=== PATIENT | male | born 1995 | race Caucasian/White ===

== ENCOUNTER 2016-11-13 16:36 | Emergency (ER) | payer BC, OTHER ==
[2016-11-13 17:58] VITALS: BP 108/67
--- NOTE | 2016-11-13 18:37 | UC ---
Skin Complaint HPI - HPI Summary HPI Summary: THREE DAYS AGO WAS WALKING IN [place], PLAYING PAINTBALL, RED BUMPS APPEARED IN LEGS AND HIPS ALL AT ONCE, NOT SPREADING. NO TICK BITES. NO SLEEPING ON UNFAMILIAR BEDS. NO FEVER. - History of Current Complaint Chief Complaint: UCSkin Time Seen by Provider: 11/13/16 17:59 Stated Complaint: RASH Hx Obtained From: Patient Onset/Duration: Sudden Onset, Lasting Days, Still Present Skin Exposure Onset/Duration: Days Ago Onset Severity: Mild Current Severity: Mild Location: Discrete - LOWER LEGS AND BILATERAL HIPS Aggravating: Nothing Alleviating: Nothing Associated Signs & Symptoms: Positive: Cough - SLIGHT COUGH, Rash, Tenderness. Negative: Nausea, Vomiting, Numbness, Thirst, Pallor, Fever, Chills, Wheezing, Chest Pain, Hoarseness, Syncope, Drainage, Bruising, Red Streaks, Joint Swelling Related History: Possible Reaction to: Animal, Possible Reaction to: Insect, Possible Reaction to: Environmental Exposure - Allergy/Home Medications Allergies/Adverse Reactions: Allergies Allergy/AdvReac Type Severity Reaction Status Date / Time Hydrocodone Allergy Intermediate Rash Verified 11/13/16 17:52 Review of Systems Constitutional: Negative Skin: Rash Eyes: Negative ENT: Negative Respiratory: Negative Cardiovascular: Negative Gastrointestinal: Negative Genitourinary: Negative Motor: Negative Neurovascular: Negative Musculoskeletal: Negative Neurological: Negative Psychological: Negative All Other Systems Reviewed And Are Negative: Yes PMH/Surg Hx/FS Hx/Imm Hx Previously Healthy: Yes Endocrine History Of: Denies: Diabetes, Thyroid Disease Cardiovascular History Of: Denies: Cardiac Disorders, Hypertension Respiratory History Of: Denies: COPD, Asthma GI/ History Of: Denies: Ulcer - Surgical History Surgical History: Yes Surgery Procedure, Year, and Place: [place] teeth extraction - Family History Known Family History: Negative: Blood Disorder - Social History Occupation: Student Lives: Alone Alcohol Use: Occasionally Substance Use Type: None Smoking Status (MU): Never Smoked Tobacco - Immunization History Most Recent Influenza Vaccination: 2017 Physical Exam Triage Information Reviewed: Yes Appearance: Well-Appearing, No Pain Distress, Well-Nourished, Thin Vital Signs: Initial Vital Signs Temp 98.5 F 11/13/16 17:53 Pulse 61 11/13/16 17:53 Resp 18 11/13/16 17:53 BP 108/67 11/13/16 17:53 Pulse Ox 100 11/13/16 17:53 Vital Signs Reviewed: Yes Eye Exam: Normal ENT Exam: Normal ENT: Positive: Normal ENT inspection, Hearing grossly normal, Pharynx normal, TMs normal Dental Exam: Normal Neck exam: Normal Neck: Positive: Supple, Nontender, No Lymphadenopathy Respiratory Exam: Normal Respiratory: Positive: Chest non-tender, Lungs clear, Normal breath sounds, No respiratory distress, No accessory muscle use Cardiovascular Exam: Normal Cardiovascular: Positive: RRR, No Murmur, Pulses Normal Abdominal Exam: Normal Abdomen Description: Positive: Nontender, No Organomegaly Musculoskeletal Exam: Normal Neurological Exam: Normal Psychological Exam: Normal Skin: Positive: rashes - SMALL DEMARKATED ERRTHEMATOUS MACULAR PAPULAR RASHES ON BILATERAL LOWER LEGS AND BILATERAL HIPS Course/Dx - Differential Diagnoses - Skin Complaint Differential Diagnoses: Allergic Reaction, Cellulitis, Drug Rash, Eczema, Impetigo, Local Allergic Reaction, MRSA, Poison [place], Poison [place], Scabies, [place], Systemic Illness, Tick Born Illness, Tinea, Urticaria, Varicella Zoster, Viral [place]hem - Diagnoses Provider Diagnoses: CONTACT DERMATITIS Discharge - Discharge Plan Condition: Stable Disposition: HOME Prescriptions: Triamcinolone 0.1% OINT(NF) [Kenalog 0.1% OINT(NF)] 1 applic .SEE ORDER BID #1 tube Patient Education Materials: Contact Dermatitis (ED) Referrals: [facility] ARNEL Murphy [Primary Care Provider] -
== END 2016-11-13 18:49 | disposition home or self-care (01) ==
LOC: UCEAST 16:36
DX: L25.9 Unspecified contact dermatitis, unspecified cause (principal); Z88.5 Allergy status to narcotic agent
CPT/HCPCS: 99212; G0463